=== PATIENT | female | born 1960 | race Caucasian/White ===

== ENCOUNTER → 2017-07-22 | Outpatient (CLI) | payer MEDICARE, MEDICAID ==
--- NOTE | 2017-07-22 15:37 | REP ---
Chest two views HISTORY: Cough Comparison: None The lungs are clear. There is blunting of the costophrenic angles due to pleural thickening or small pleural effusions. The heart is normal in size. The pulmonary vasculature is normal in appearance. The bony structure is intact. IMPRESSION: There is blunting of the costophrenic angles due to pleural thickening or small pleural effusions. Signed by Daniel Melchor MD 07/22/2017 03:29 P
== END ==
LOC: M SMT 14:54
PROVIDERS: ATTEND Internal Medicine Pulmonary Disease
DX: R05 Cough (principal)

== ENCOUNTER → 2020-04-25 | Outpatient (CLI) | payer MEDICARE, MEDICAID ==
--- NOTE | 2020-04-25 15:33 | PFTRPT ---
Site: [facility], [address] [place], [address] ID: [id number] Name: BOBY HAMMOND Visit Date: 04/25/2020 Second ID: [id number] Referring Doctor: JACLYN CORDOVA Reviewing Doctor: Calvin Pollard MD County Administrator: Stone AYON RRT Age: 59 : 1960 Sex: Female Race: Height: 65.50 Inches Weight: 170.00 Lbs BSA: 1.86 Order IDs: [id number] Requested Test(s): <RESP-PFT.PFT B/A> Diagnosis: R05 of albuterol for post bronchodilator. Review Status: Not Reviewed Pre-Bronch Post-Bronch Pred Actual %Pred Actual %Chng SPIROMETRY FVC (L) 3.44 2.07 60 2.11 1 FEV1 (L) 2.65 1.68 63 1.77 5 FEV1/FVC (%) 78 81 104 84 3 FEF 25% (L/sec) 5.09 3.17 62 3.15 FEF 50% (L/sec) 3.57 2.47 69 3.10 25 FEF 75% (L/sec) 1.17 0.69 58 0.85 24 FEF 25-75% (L/sec) 2.35 1.82 77 2.28 25 FEF Max (L/sec) 6.42 4.27 66 3.50 -17 FIVC (L) 1.98 1.91 -3 FIF 50% (L/sec) 3.53 2.23 63 2.99 34 FIF Max (L/sec) 2.23 3.13 40 MVV (L/min) 93 78 83 Expiratory Time (sec) 6.72 7.14 6 Back Extrap Vol (L) 0.07 0.06 -16 Time To FEFmax (sec) 0.145 0.188 29 LUNG VOLUMES SVC (L) 3.18 2.08 65 IC (L) 2.28 1.55 68 ERV (L) 0.90 0.53 58 TGV (L) 3.00 2.99 99 RV (Pleth) (L) 2.10 2.46 116 TLC (Pleth) (L) 5.28 4.54 85 RV/TLC (Pleth) (%) 40 54 135 DIFFUSION DLCOunc (ml/min/mmHg) 22.02 13.56 61 DLCOcor (ml/min/mmHg) 22.02 15.39 69 DL/VA (ml/min/mmHg/L) 4.17 4.66 111 VA (L) 5.28 3.30 62 BHT (sec) 9.87 IVC (L) 2.01 TLC (SB) (L) 3.45 AIRWAYS RESISTANCE Raw (cmH2O/L/s) 1.86 1.12 60 Gaw (L/s/cmH2O) 1.03 0.90 86 sRaw (cmH2O*s) 4.76 3.41 71 sGaw (1/cmH2O*s) 0.20 0.29 147 BLOOD GASES Hgb (gm/dL) 10.1
== END ==
LOC: M CARPUL 14:56
PROVIDERS: ATTEND Nurse Practitioner Family
DX: R05 Cough (principal)

== ENCOUNTER → 2020-07-24 | Outpatient (CLI) | payer MEDICARE ==
--- NOTE | 2020-07-27 17:34 | REP ---
INDICATION: OTHER NON SPECIFIC ABNORMAL FINDING OF LUNG FIELD COMPARISON: 08/25/2019 TECHNIQUE: Axial noncontrast images from the thoracic inlet to the upper abdomen with coronal and sagittal reformations. This CT examination was performed using the following dose reduction techniques: Automated exposure control, adjustment of mA and/or kv according to the patient's size, and use of iterative reconstruction technique. 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 Small 3 mm calcified granuloma in the periphery of the left upper lobe remains stable. No acute consolidation, new significant nodule or mass lesion, pleural effusion or pneumothorax. Tracheobronchial tree is patent. Further evaluation of the mediastinum demonstrates no significant adenopathy. Stable atherosclerotic changes to the thoracic aorta and coronary arteries again noted without aortic aneurysm or cardiomegaly. No pericardial effusion. Surrounding musculoskeletal structures are intact and without acute osseous abnormality. Limited upper abdomen demonstrates stable bilateral adrenal adenomas and evidence for prior gastric bypass surgery and cholecystectomy. IMPRESSION: 1. Stable chronic pleuroparenchymal changes. 2. No acute mediastinal or pleuroparenchymal process. 3. Stable bilateral adrenal adenomas. <Electronically signed by Amol Givens > 07/27/20 [id number]
== END ==
LOC: M RAD 09:33
PROVIDERS: ATTEND Internal Medicine Pulmonary Disease
DX: R91.8 Other nonspecific abnormal finding of lung field (principal)

== ENCOUNTER → 2021-08-21 | Outpatient (CLI) | payer MEDICAID, MEDICARE ==
--- NOTE | 2021-08-21 13:31 | REP ---
INDICATION: NICOTINE DEPENDENCE, COMPARE 07/24/20 COMPARISON: 07/24/2020, 08/25/2019 TECHNIQUE: Axial noncontrast images from the thoracic inlet to the upper abdomen using low-dose lung screening technique (LDCT). FINDINGS: Lung kern demonstrate stable fibroatelectatic changes and scattered basilar scarring. Few small calcified granulomata measure up to 2 mm. No acute consolidation, suspicious nodule or mass. No effusion. No pneumothorax. Tracheobronchial tree is patent. IMPRESSION: Lung-RADS category 2. Stable chronic changes. Management recommendations include annual low-dose CT surveillance. <Electronically signed by Amol Givens > 08/21/21 [id number]
== END ==
LOC: M RAD 13:06
PROVIDERS: ATTEND Nurse Practitioner Family
DX: Z12.2 Encounter for screening for malignant neoplasm of respiratory organs (principal); F17.218 Nicotine dependence, cigarettes, with other nicotine-induced disorders; J84.10 Pulmonary fibrosis, unspecified

== ENCOUNTER → 2022-10-10 | Outpatient (CLI) | payer MEDICARE | LOC: M RAD 10:40 | PROVIDERS: ATTEND Nurse Practitioner Family | DX: Z12.2 Encounter for screening for malignant neoplasm of respiratory organs (principal); F17.218 Nicotine dependence, cigarettes, with other nicotine-induced disorders; R91.1 Solitary pulmonary nodule ==

== ENCOUNTER → 2023-11-28 | Outpatient (CLI) | payer MEDICARE, OTHER | LOC: M RAD 13:30 | PROVIDERS: ATTEND Nurse Practitioner Family | DX: Z12.2 Encounter for screening for malignant neoplasm of respiratory organs (principal); F17.218 Nicotine dependence, cigarettes, with other nicotine-induced disorders ==